=== PATIENT | female | born 1950 | race Caucasian/White ===

== ENCOUNTER 2020-12-11 11:21 | Day surgery (SDC) | payer MEDICARE, OTHER ==
[~2020-12-11] VITALS: Ht 160 cm; Wt 56.8 kg
[2020-12-11 12:09] VITALS: BP 143/77
[2020-12-11] MEDS ORDERED: MULT-758 PO (12:23)
[2020-12-11] MEDS ORDERED: DICL75TA3 PO (12:23)
[2020-12-11] MEDS ORDERED: CALC1TAB PO (12:23)
[2020-12-11] MEDS ORDERED: [UNRECOGNIZED DRUG - OTHER] VG (12:23)
[2020-12-11] MEDS ORDERED: Estradiol VG (12:24)
[2020-12-11] MEDS ORDERED: NIFE-7 PO (12:24)
[2020-12-11] MEDS ORDERED: DIPHENHYDRAMINE 50 MG/ML, 1ML IVPush ONE (12:30)
[2020-12-11] MEDS ORDERED: DIPHENHYDRAMINE 50 MG/ML, 1ML ONE (12:38)
[2020-12-11] MEDS ORDERED: LIDOCAINE-MPF 1%, 5ML ONE (12:49)
[2020-12-11] MEDS ORDERED: FENTANYL PF 100 MCG/2ML ONE (12:49)
[2020-12-11] MEDS ORDERED: MIDAZOLAM 1 MG/ML, 2ML ONE (12:49)
== END 2020-12-11 14:47 | disposition home or self-care (01) ==
LOC: CACL 11:21
PROVIDERS: ATTEND Internal Medicine Cardiovascular Disease
DX: M34.1 CR(E)ST syndrome (principal); Z79.899 Other long term (current) drug therapy; Z87.891 Personal history of nicotine dependence; Z88.5 Allergy status to narcotic agent; Z88.8 Allergy status to other drugs, medicaments and biological substances
CPT/HCPCS: 36415; 82330; 82803; 82947; 84132; 84295; 85014; 93451; 99156; C1894; J1200; J2250; J3010